=== PATIENT | female | born 1925 | race Caucasian/White ===

== ENCOUNTER 2016-08-20 10:54 | Observation (INO) ==
[~2016-08-20 10:54] MED LIST: *HR* Propofol 200 MG/20 ML VIAL IVP ONE; *HR* Succinylcholine 200 MG/10 ML VIAL IVP ONE; Lidocaine -MPF 2% 5 ML VIAL INFILT ONE; Lidocaine -MPF 4% 5 ML AMPUL TP ONE; Ondansetron 4 MG/2 ML VIAL IVP ONE
[2016-08-20] MEDS: Ringers Solution, Lactated 1,000 ML IVC SCH ×2 (11:36→23:45)
--- NOTE | 2016-08-20 11:36 | Anesthesia Evaluation PreOp ---
Date of Encounter: 08/20/16 Time of Encounter: 11:34 - Past History Planned Operation: EBUS Cardiac History: Hyperlipidemia (maintained on Atorvastatin) Pulmonary History: Former smoker (1-2ppd x many years. Quit >10yrs ago), COPD, Other (Lung Nodule/adenopathy associated w/ SOB. Home O2 prn.) QUALITY LIAISON History: TIA, Other (Anxiety/Depression maintained on Xanax.) Other Medical History: Renal (CRI), GERD (Hiatal Hernia/GERD maintained on Prilosec), Other (Dysphagia. Pt reports Hx of a "bleeding Hiatal Hernia that is inoperable because it is 'too close to my heart'" - Pt denies the possibility of it being an aneurysm...) Anesthesia History: No Prior Anesthetic Complications, Past Anesthesia (Appy, Shelia, Partial Hyster, R-CTR/ulnar nerve decompression, Hemorrhoidectomy, Kidney stones, Esophageal Dilations) Alcohol Use: none Drug use: none Medications and Allergies Alprazolam [Xanax 1 MG Tablet] 1 mg PO TID PRN 08/01/15 [History] Ferrous Sulfate [Iron] 325 mg PO BID 08/01/15 [History] Meclizine [Antivert] 25 mg PO BID 08/01/15 [History] Omeprazole [PriLOSEC] 20 mg PO DAILY 08/01/15 [History] OxyCODONE/APAP 10/325 [Percocet 10/325 MG] 1 tab PO Q6HR PRN 08/01/15 [History] Albuterol Neb [Proventil Neb] 2.5 mg IH TID 08/20/16 [History] Atorvastatin [Lipitor] 10 mg PO HS 08/20/16 [History] Cyanocobalamin (B-12) [Vitamin B12] 1 ml IJ QMONTH 08/20/16 [History] Ergocalciferol (VITAMIN D2) [Vitamin D2] 50,000 unit PO MO 08/20/16 [History] Furosemide [Lasix] 20 mg PO DAILY PRN 08/20/16 [History] Linaclotide [Linzess] 290 mcg PO DAILY PRN 08/20/16 [History] Tizanidine HCl 4 mg PO Q12H PRN 08/20/16 [History] Allergies No Known Drug Allergies Allergy (Verified 08/20/16 11:25) See Comments - Meds/Allergy Pre-op Review Medications Reviewed: Yes Allergies Reviewed: Yes Beta Blockers on Current Med List: No Anesthesia Results - Labs Laboratory Tests 08/09/16 08/16/16 14:35 10:08 WBC 8.6 Hgb 10.9 L Hct 34.3 L Plt Count 258 Sodium 140 Potassium 4.1 Chloride 111 H Carbon Dioxide 21 BUN 17 Creatinine 1.01 Est GFR (Non-Af Amer) 52 L Anesthesia Exam O2 Sat Height 1.52 m Height 1.52 m Weight 50.802 kg Weight 50.802 kg O2 Sat by Pulse Oximetry 98 O2 Sat by Pulse Oximetry 98 Vital Signs Temp Pulse Resp BP Pulse Ox 98.2 F 95 20 150/107 98 08/20/16 11:04 08/20/16 11:04 08/20/16 11:04 08/20/16 11:04 08/20/16 11:04 Height: 5'3" Weight: 113# bmi = 20 NPO (# of Hours): mnoC - HEENT Pupil (Motor): Pupils equal, EOMI Mallampati: II Teeth: Edentulous Oral Opening: Greater than 3 - QUALITY LIAISON LOC: Oriented QUALITY LIAISON Motor: Normal RUE, Normal LUE, Normal RLE, Normal LLE, Normal Face QUALITY LIAISON Sensory: Normal: RUE, LUE, RLE, LLE, Face - Cardiac Rhythm: Regular Murmur: None JVD: No - Pulmonary Breath Sounds: bilateral Clear (Clear in between productive sounding coughs) Respiratory Effort: Symmetrical Anesthesia Assess/Plan ASA Score: 3 Modified Parchman Scale for Level of Consciousness: Cooperative, oriented, and tranquil Anesthetic Plan: General Monitoring Plan: Standard Monitors Recovery Plan: PACU Anes Supervising Prov Stmt: Pt seen/evaluated, R&B Discussed, questions answered and consent obtained. Khang Kay MD
[2016-08-20] MEDS ORDERED: *HR* FentaNYL (PF) 100 MCG/2 ML VIAL ONE (12:12)
--- NOTE | 2016-08-20 12:19 | History & Physical Report ---
Date of Encounter: 08/20/16 Time of Encounter: 12:19 24 Hour HP Update - Instructions Instructions: If the History and Physical is less than 30 days old and was completed prior to A.M. admission and or procedure and has NOT been updated on calendar day of procedure please complete this update prior to performing procedure. - Update Patient reports changes in Medical Condition: No Changes in assessment/condition: No Changes in Medication: No Preop tests/diagnostics Reviewed: Yes Pre-Op MRSA Screen: Negative Surgery Remains Indicated: Yes Consent for Planned Operative Procedure(s) Verified: Yes - Pre-Operative Checklist Preoperative Checklist Indicated: No
[2016-08-20] MEDS ORDERED: *HR* EPINEPHrine 1 MG/10 ML SYRINGE ONE (14:40)
--- NOTE | 2016-08-20 15:27 | Event Note ---
Date of Encounter: 08/20/16 Time of Encounter: 15:18 I followed up with the patient post procedure in the recovery suite. She had bronchoscopy with endobronchial ultrasound and fine-needle aspiration which complicated by significant bleeding into the airway bleeding resolved on its own and patient was successfully extubated. Doing okay in recovery although oxygen saturation's on room air high 80s low 90s still with significant wheezing and increased respiratory rate given advanced age and procedure related complication recommend overnight observation in a monitored setting patient will be transported to the emergency department and I did call report to the emergency department physician. He would benefit from continued bronchodilator therapy and would recommend starting him. Antimicrobials for community-acquired pneumonia given findings from bronchoscopy consistent with left lower lobe pneumonia -bronchoalveolar lavage was performed which is pending at this time. I discussed my plan with the patient and her daughter at bedside and they are in agreement with overnight monitoring
--- NOTE | 2016-08-20 15:39 | Anesthesia Evaluation Post Op ---
Date of Encounter: 08/20/16 Time of Encounter: 15:37 - Vital Signs Vital Signs: Vital Signs/O2 Sat/Glucose, Most Current Temp Pulse Resp BP Pulse Ox 08/20/16 14:25 97.8 F 95 18 157/76 95 08/20/16 14:15 97.8 F 98 18 152/70 100 08/20/16 14:05 95 18 153/71 100 08/20/16 13:55 98.6 F 104 20 148/77 98 - Lungs Lungs: Clear Ascult./Percussion - Airway Airway: Non-obstructed - Cardiovascular Regular Rate, Baseline Rhythm - Mental Status Mental Status: Alert & Oriented, Answers Appropriately - Pain Pain Scale: 1 Pain Scale used: Numeric (1 - 10) - Nausea Vomiting Nausea Vomiting: Not Present - Hydration Hydration: Tolerates oral liquids, Able to void, Unable to void - Discharge PostOp Status: Transfer Patient to floor Anes Supervising Prov Stmt: Pt seen/evaluated, VSS and pt has met criteria for discharge. Pt to be admitted for overnight observation per Dr. Ortega's request. - MD Rahul
[2016-08-20] MEDS ORDERED: Naloxone 0.4 MG/ML INJ IVP PRN (18:55)
[2016-08-20] MEDS ORDERED: Acetaminophen 325 MG TABLET PO PRN (18:55)
[2016-08-20] MEDS ORDERED: *HR* OxyCODONE/APAP 10/325 TABLET PO PRN (19:01)
[2016-08-20] MEDS ORDERED: CefTRIAXone 1,000 MG VIAL IM ONE (19:33)
--- NOTE | 2016-08-20 19:37 | Internal Med History&Physical ---
Date of Encounter: 08/20/16 Time of Encounter: 18:30 Assessment and Plan (1) Hemoptysis Current visit: Yes Status: Acute 1 patient status post bronchoscopy today developed wheezing and hemoptysis postoperatively. Hemoptysis changed from bright red to dark small amounts. Zacarias patient coughed up dark red quarter size phlegm. We will continue to monitor 2 we will give Mucinex to help with mucus 3 we will check CBC in a.m. 4 pulmonary consult for [id number] bronchoscopy (2) Community acquired pneumonia Current visit: Yes Status: Acute 1 patient underwent bronchoscopy today-per pulmonary bronched consistent with left lower lobe pneumonia suggests antimicrobial coverage for the acquired pneumonia. Will initiate on Rocephin and Zithromax 2 continue with oxygen maintaining a SPO2 greater than 90% 3 steroids to taper (3) COPD exacerbation Current visit: Yes Status: Acute 1 patient has history of COPD is oxygen dependent. Underwent bronchoscopy today developed wheezing after extubation as well as hemoptysis. We will continue with oxygen titrated to maintain SPO2 greater than 92% 2 continue with bronchodilators 3 steroids to taper 4 Mucinex to help with mucus 5 continuous SPO2 monitoring Internal Medicine - H&P: HPI Chief complaint: hemoptysis Admitted From: Intrahospital Transfer Plans for Post Hospital Care: Home History of present illness: Ms. Jimenes is a 89 year old female with medical history of COPD oxygen- dependent anemia diverticulosis coronary artery disease. Patient has been seen by Dr. Bush concerning lung nodules increasing shortness of breath as well as weight 30 pound weight loss in the year. She underwent bronchoscopy today for lung biopsy. Postoperatively patient did experience wheezing after intubation as well as some hemoptysis. She was given breathing treatments wheezing did improve she has been admitted for observation overnight. Presently the patient does not appear to be in any respiratory distress she does have some scattered rhonchi throughout. She is hemodynamically stable this time I reviewed this case with Dr. Davenport who agrees with plan Past Med Surg Social Fam HX - Past Medical History Medical history: arthritis, COPD, coronary artery disease, other Psychiatric history: anxiety - Past Surgical History Surgical History: non-contributory, appendectomy, cholecystectomy, hysterectomy - Social History Smoking Status: Never smoker Smokeless Tobacco Status: No Alcohol use: none Drug use: none - Family History Son Living Status: Still Living Hx Family Cardiac Disorders: Yes (HTN) Internal Medicine - H&P: Meds Alprazolam [Xanax 1 MG Tablet] 1 mg PO TID PRN 08/01/15 [History] Ferrous Sulfate [Iron] 325 mg PO BID 08/01/15 [History] Meclizine [Antivert] 25 mg PO BID 08/01/15 [History] Omeprazole [PriLOSEC] 20 mg PO DAILY 08/01/15 [History] OxyCODONE/APAP 10/325 [Percocet 10/325 MG] 1 tab PO Q6HR PRN 08/01/15 [History] Albuterol Neb [Proventil Neb] 2.5 mg IH TID 08/20/16 [History] Atorvastatin [Lipitor] 10 mg PO HS 08/20/16 [History] Cyanocobalamin (B-12) [Vitamin B12] 1 ml IJ QMONTH 08/20/16 [History] Ergocalciferol (VITAMIN D2) [Vitamin D2] 50,000 unit PO MO 08/20/16 [History] Furosemide [Lasix] 20 mg PO DAILY PRN 08/20/16 [History] Linaclotide [Linzess] 290 mcg PO DAILY PRN 08/20/16 [History] Tizanidine HCl 4 mg PO Q12H PRN 08/20/16 [History] Allergies No Known Drug Allergies Allergy (Verified 08/20/16 11:25) See Comments All Systems PM: A 10-system review of systems was performed and is negative for pertinent findings except as documented above in the HPI. - Constitutional Constitutional: weight loss - Cardiovascular Cardiovascular ROS IM: no chest pain, no diaphoresis, no dyspnea, no lightheadedness, no palpitations, no syncope - Respiratory Respiratory: dyspnea on exertion - Gastrointestinal Gastrointestinal: constipation, no abdominal pain, no diarrhea, no hematemesis, no hematochezia, no melena, no nausea, no vomiting - Genitourinary Genitourinary: no change in urinary stream, no dysuria, no flank pain, no hematuria - Neurological Neurological ROS: no confusion, no convulsions, no focal weakness, no numbness, no tingling, no tremor(s) - Constitutional Vitals: Temp Pulse Resp BP Pulse Ox 98.2 F 100 18 174/89 95 08/20/16 19:13 08/20/16 19:13 08/20/16 19:13 08/20/16 19:13 08/20/16 19:13 General appearance: Present: A&O X 3 - Head Head exam: Present: atraumatic, normocephalic - Eye Eye exam: Present: PERRL, conjuntiva pink, sclera anicteric Pupils: Present: PERRL - Neck Neck exam general surgery: Present: supple, trachea midline. Absent: lymphadenopathy - Respiratory Respiratory exam: Present: rhonchi. Absent: accessory muscle use, rales, wheezes - Cardiovascular Cardiovascular exam: Present: RRR, +S1, +S2, systolic murmur. Absent: diastolic murmur, gallop, rubs - GI/Abdominal GI/Abdominal exam: Present: normal bowel sounds, soft, no peritoneal signs. Absent: distended, tenderness
[2016-08-20] MEDS ORDERED: Azithromycin 500 MG in D5% in Water 250 ML IVPB SCH (20:00)
[2016-08-20 20:11] LABS: Hemoglobin 10.1 g/dL (11.5-15.4)
[2016-08-20] MEDS: Ipratropium/Albuterol Neb 3 ML IH SCH (22:58)
[2016-08-20] MEDS: methylPREDNISolone 125 MG/2 ML VIAL IVP SCH (23:45)
[2016-08-21] MEDS: Albuterol 2.5 MG/3 ML NEBULIZER IH SCH ×2 (04:16→11:28)
[2016-08-21] MEDS: Ipratropium/Albuterol Neb 3 ML IH SCH ×3 (04:56→16:17)
[2016-08-21 05:17] LABS: Basophils % 0.1 %; Hematocrit 31.7 % (35.3-44.9); Hemoglobin 9.2 g/dL (11.5-15.4); Immature Granulocytes % 0.5 % (0-4); Lymphocytes # 0.5 K/mcL (0.6-4.6); Lymphocytes % 4.7 %; Mean Corpuscular Hemoglobin 26.4 pg (28.0-33.3); Mean Corpuscular Volume 90.8 fL (83.0-100.0); Mean Platelet Volume 10.4 fL (9.4-12.4); Monocytes # 0.1 K/mcL (0.0-1.3); Monocytes % 0.8 %; Neutrophils # 9.3 K/mcL (1.6-8.9); Platelet Count 299 K/mcL (140-400); Red Blood Count 3.49 M/mcL (3.82-4.97); Red Cell Distribution Width 16.4 % (11.5-14.5); Segmented Neutrophils % 93.9 %
[2016-08-21 05:37] LABS: BUN/Creatinine Ratio 23 (6-26); Blood Urea Nitrogen 23 mg/dL (7-20); Calcium 9.1 mg/dL (8.6-10.8); Carbon Dioxide 19 mEq/L (19-29); Chloride 107 mEq/L (98-109); Glucose 138 mg/dL (70-99); Osmolality,Calculated 286 (280-300); Potassium 4.6 mEq/L (3.5-4.5); Sodium 135 mEq/L (136-145); eGFR For African Americans > 60 (> 60); eGFR For Non-African Americans 53 (> 60)
[2016-08-21] MEDS: methylPREDNISolone 125 MG/2 ML VIAL IVP SCH (09:38)
[2016-08-21 09:55] LABS: Appearance of Body Fluid Hazy (Clear); Volume of Body Fluid 16 mL
[2016-08-21 12:09] VITALS: BP 145/79
--- NOTE | 2016-08-21 14:45 | Discharge Summary ---
Date of Encounter: 08/21/16 Time of Encounter: 14:42 - Discharge Diagnosis (1) Chronic respiratory failure with hypoxia Priority: Secondary Status: Acute (2) Weakness generalized Priority: Secondary Status: Chronic (3) Hemoptysis Priority: Secondary Status: Acute (4) Community acquired pneumonia Priority: Primary Status: Acute - Discharge Medications Prescriptions: Azithromycin [Zithromax] 500 mg PO DAILY #5 tablet Ipratropium/Albuterol Neb [Duoneb] 3 ml IH TID #60 inhsol PredniSONE 40 mg PO DAILY #5 tablet Home Medications: Alprazolam [Xanax 1 MG Tablet] 1 mg PO TID PRN 08/01/15 [History] Ferrous Sulfate [Iron] 325 mg PO BID 08/01/15 [History] Meclizine [Antivert] 25 mg PO BID 08/01/15 [History] Omeprazole [PriLOSEC] 20 mg PO DAILY 08/01/15 [History] OxyCODONE/APAP 10/325 [Percocet 10/325 MG] 1 tab PO Q6HR PRN 08/01/15 [History] Albuterol Neb [Proventil Neb] 2.5 mg IH TID 08/20/16 [History] Atorvastatin [Lipitor] 10 mg PO HS 08/20/16 [History] Cyanocobalamin (B-12) [Vitamin B12] 1 ml IJ QMONTH 08/20/16 [History] Ergocalciferol (VITAMIN D2) [Vitamin D2] 50,000 unit PO MO 08/20/16 [History] Furosemide [Lasix] 20 mg PO DAILY PRN 08/20/16 [History] Linaclotide [Linzess] 290 mcg PO DAILY PRN 08/20/16 [History] Tizanidine HCl 4 mg PO Q12H PRN 08/20/16 [History] Albuterol Neb [Proventil Neb] 2.5 mg IH TIDR PRN inhsol 08/21/16 [Rx] Azithromycin [Zithromax] 500 mg PO DAILY #5 tablet 08/21/16 [Rx] Ipratropium/Albuterol Neb [Duoneb] 3 ml IH TID #60 inhsol 08/21/16 [Rx] PredniSONE 40 mg PO DAILY #5 tablet 08/21/16 [Rx] Allergies/Adverse Reactions: Allergies No Known Drug Allergies Allergy (Verified 08/20/16 11:25) See Comments Date of admission: 08/20/16 18:39 Primary care physician: Karime Conley Consults: 08/20/16 19:19 Consult to Pulmonology [CONS] Routine Consulting Provider: [facility] [place] Reason for Consult: S/P bronch, hemoptysis Time Notified: 19:21 Call Completed: No - Patient Status Disposition: Home Health Service Condition: Good Functional capacity at discharge: uses cane/walker - Discharge Instructions Instructions: Prednisone (By mouth), Azithromycin (By mouth), Ipratropium/ Albuterol (By breathing), Chronic Obstructive Pulmonary Disease (DC), Anemia ( GEN), Pneumonia (DC) Follow Up With: Dilshad Ortega MD [Partnered Physician] - (the office will call you with your appointment time ) Karime Koch MD [Primary Care Provider] - 08/29/16 2:00 pm ( ) - Diet and Activity Activity: ambulate only with your walker, as per physical therapy Diet: advance to your usual diet, low salt diet Hospital course: Ms. Jimenes is a 89 year old female with medical history of COPD oxygen- dependent anemia diverticulosis coronary artery disease. Patient has been seen by Dr. Bush concerning lung nodules increasing shortness of breath as well as weight 30 pound weight loss in the year. She underwent bronchoscopy yesterday for lung biopsy. Postoperatively patient did experience wheezing after intubation as well as some hemoptysis. She was given breathing treatments wheezing did improve she has been admitted for observation overnight. Imaging revealed findings concerning for pneumonia. She was treated with ceftriaxone and azithromycin, prednisone and oxygen by nasal cannula. She improved. Currently she has back to baseline. Denies shortness of breath. Hemoptysis has resolved. She was reevaluated by pulmonary and cleared for discharge. She will be discharged home on azithromycin and prednisone. - Time Spent with Patient Total time spent providing and/or coordinating discharge services: - Constitutional Vitals: Temp Pulse Resp BP Pulse Ox 98.1 F 118 16 145/79 98 08/21/16 12:03 08/21/16 12:03 08/21/16 12:03 08/21/16 12:03 08/21/16 12:03 General appearance: Present: A&O X 3 - Respiratory Respiratory exam: Present: CTAB. Absent: accessory muscle use, rales, rhonchi, wheezes - Cardiovascular Cardiovascular exam: Present: RRR, +S1, +S2. Absent: diastolic murmur, gallop, rubs, systolic murmur - Extremities Exam Extremities exam: Present: warm, radial pulses palpable and symetrical. Absent : calf tenderness, cyanotic, pedal edema
--- NOTE | 2016-08-29 10:09 | Internal Med Progress Note ---
Date of Encounter: 08/21/16 - Assessment and plan (1) Chronic respiratory failure with hypoxia Status: Acute (2) Weakness generalized Status: Chronic (3) Hemoptysis Status: Acute (4) Community acquired pneumonia Status: Acute - Constitutional Vitals: Temp Pulse Resp BP Pulse Ox 98.1 F 118 20 145/79 98 08/21/16 12:03 08/21/16 12:03 08/21/16 16:17 08/21/16 12:03 08/21/16 16:17 General appearance: Present: A&O X 3 Internal Medicine: Result - Labs CBC & Chem 7: 08/21/16 04:54 08/21/16 04:54 Consult Discharge Plan - Plan Instructions: Prednisone (By mouth), Azithromycin (By mouth), Ipratropium/ Albuterol (By breathing), Chronic Obstructive Pulmonary Disease (DC), Anemia ( GEN), Pneumonia (DC) Referrals: Dilshad Ortega MD [Partnered Physician] - (the office will call you with your appointment time ) Karime Koch MD [Primary Care Provider] - 08/29/16 2:00 pm ( ) Prescriptions: Azithromycin [Zithromax] 500 mg PO DAILY #5 tablet Ipratropium/Albuterol Neb [Duoneb] 3 ml IH TID #60 inhsol PredniSONE 40 mg PO DAILY #5 tablet
== END 2016-08-21 17:15 | disposition home health service (06) ==
LOC: ENDPAV 10:54 → INTOOBSV 18:39 → 2NENU 18:39
PROVIDERS: ADMIT Internal Medicine; ATTEND Internal Medicine

== ENCOUNTER 2016-09-04 12:57 | Observation (INO) ==
[2016-09-04 13:43] LABS: Basophils % 0.1 %; Eosinophils % 0.1 %; Hematocrit 37.5 % (35.3-44.9); Immature Granulocytes % 1.1 % (0-4); Lymphocytes # 1.4 K/mcL (0.6-4.6); Mean Corpuscular Hemoglobin 26.9 pg (28.0-33.3); Mean Platelet Volume 9.8 fL (9.4-12.4); Monocytes % 6.2 %; Neutrophils # 13.3 K/mcL (1.6-8.9); Platelet Count 331 K/mcL (140-400); Red Blood Count 4.46 M/mcL (3.82-4.97); Red Cell Distribution Width 17.5 % (11.5-14.5); Segmented Neutrophils % 83.5 %
[2016-09-04 13:48] LABS: Mean Corpuscular Volume 84.1 fL (83.0-100.0)
[2016-09-04 13:56] LABS: Calcium 9.4 mg/dL (8.6-10.8); Potassium 4.4 mEq/L (3.5-4.5)
[2016-09-04] MEDS ORDERED: Ipratropium/Albuterol Neb 3 ML IH ONE (13:57)
[2016-09-04] MEDS ORDERED: Aspirin 81 MG TAB.CHEW PO STA (13:57)
[2016-09-04] MEDS ORDERED: methylPREDNISolone 125 MG/2 ML VIAL IVP ONE (13:57)
--- NOTE | 2016-09-04 14:00 | Emergency Department Note ---
Disposition Clinical Impression: Exertional dyspnea, Chest pain Disposition: Admitted As Inpatient Condition: Fair Referrals: Karime Koch MD [Primary Care Provider] - Forms: ED Satisfaction Letter Time of Disposition: 15:34 General Adult HPI - General Chief complaint: ED Weakness Stated complaint: weakness, amanda Time Seen by Provider: 09/04/16 13:54 Source: patient, family Mode of arrival: wheelchair Limitations: no limitations Nursing Notes Reviewed: Yes Vital Signs Reviewed: Yes - History of Present Illness HPI Narrative: 89-year-old has had increasing chest pain and shortness of breath for last couple of days. States she really get short of breath when she exerts herself. Does have a history of COPD but has not smoked for 20 years. No recent cardiac workup. Pt Subjective Complaint: Chest pain shortness of breath Onset (ago): day(s) Location: chest Radiation: non-radiation Pain Severity: moderate Pain Scale: 0 Quality: aching Consistency: constant Improves with: nothing Worsens with: other (Exertion) Associated symptoms: Reports: chest pain Treatments Prior to Arrival: none - Related Data Home Medications Medication Instructions Recorded Confirmed Alprazolam [Xanax 1 MG Tablet] 1 mg PO TID PRN 08/01/15 08/20/16 Ferrous Sulfate [Iron] 325 mg PO BID 08/01/15 08/20/16 Meclizine [Antivert] 25 mg PO BID 08/01/15 08/20/16 Omeprazole [PriLOSEC] 20 mg PO DAILY 08/01/15 08/20/16 OxyCODONE/APAP 10/325 [Percocet 1 tab PO Q6HR PRN 08/01/15 08/20/16 10/325 MG] Albuterol Neb [Proventil Neb] 2.5 mg IH TID 08/20/16 08/20/16 Atorvastatin [Lipitor] 10 mg PO HS 08/20/16 08/20/16 Cyanocobalamin (B-12) [Vitamin B12] 1 ml IJ QMONTH 08/20/16 08/20/16 Ergocalciferol (VITAMIN D2) 50,000 unit PO MO 08/20/16 08/20/16 [Vitamin D2] Furosemide [Lasix] 20 mg PO DAILY PRN 08/20/16 08/20/16 Linaclotide [Linzess] 290 mcg PO DAILY PRN 08/20/16 08/20/16 Tizanidine HCl 4 mg PO Q12H PRN 08/20/16 08/20/16 Previous Rx's Medication Instructions Recorded Albuterol Neb [Proventil Neb] 2.5 mg IH TIDR PRN inhsol 08/21/16 Azithromycin [Zithromax] 500 mg PO DAILY #5 tablet 08/21/16 Ipratropium/Albuterol Neb [Duoneb] 3 ml IH TID #60 inhsol 08/21/16 PredniSONE 40 mg PO DAILY #5 tablet 08/21/16 Allergies Allergy/AdvReac Type Severity Reaction Status Date / Time No Known Drug Allergies Allergy See Verified 08/20/16 11:25 Comments All systems ED: reviewed and negative except as stated. Constitutional: Denies: fever, chills, weakness, weight change Eyes: Denies: eye pain, eye discharge, vision change ENT ED: Denies: ear pain, throat pain, dental pain, hearing loss, epistaxis, congestion, dysphagia Cardiovascular: Reports: chest pain, dyspnea on exertion. Denies: palpitations , edema, syncope Respiratory: Reports: dyspnea, wheezes. Denies: cough, hemoptysis, stridor Gastrointestinal: Denies: abdominal pain, nausea, vomiting, diarrhea, constipation, hematemesis, melena, hematochezia Genitourinary: Denies: dysuria, frequency, hematuria, discharge Musculoskeletal: Denies: back pain, neck pain, arthralgia, myalgia Integumentary: Denies: rash, abrasion, lesions Neurological: Denies: headache, weakness, numbness, paresthesias, confusion, abnormal gait, vertigo Psychiatric: Denies: anxiety, depression, suicidal thoughts, homicidal thoughts , auditory hallucinations, visual hallucinations Endocrine: Denies: fatigue Hematological/Lymphatic: Denies: easy bleeding, easy bruising Allergic/Immunologic: Denies: facial swelling, urticaria Past Medical History - Past Medical History Medical history: Reports: arthritis, COPD, coronary artery disease, other Surgical history: Reports: non-contributory, appendectomy, cholecystectomy, hysterectomy Psychiatric history: Reports: anxiety - Social History Smoking Status: Never smoker Smokeless Tobacco Status: No Alcohol use: Reports: none Drug use: Reports: none Physical Exam - General Limitations: no limitations General appearance: alert, in no apparent distress - Head Head exam: atraumatic, normocephalic, normal inspection - Eye Eye exam: Present: normal appearance, PERRL, EOMI - ENT ENT exam: normal exam, normal oropharynx, mucous membranes moist - Neck Neck exam: Present: normal inspection, full ROM, trachea midline - Chest Chest inspection: Present: normal inspection, symmetric chest wall rise - Respiratory Respiratory exam: Present: wheezes - Cardiovascular Cardiovascular exam: Present: regular rate, normal rhythm, normal heart sounds - Abdominal Exam Abdominal exam: Present: soft, Non-Tender. Absent: tenderness, distention, guarding, rebound, rigidity - Extremities Exam Extremities exam: Present: normal inspection, full ROM. Absent: tenderness, pedal edema - Expanded Lower Extremity Exam Neurovascular/Tendon exam: Absent: motor deficit, sensory deficit, tendon deficit Gait: not tested/not observed - Back Exam Back exam: Present: normal inspection, full ROM. Absent: tenderness - Neurological Exam Neurological exam: Present: alert, oriented X3 - Psychiatric Psychiatric exam: Present: normal affect, normal mood - Skin Skin exam: Present: warm, dry, intact, normal color Course - Reevaluation(s) Reevaluation #1: 89-year-old female who comes in with intermittent chest pain for the last couple of days and exertional dyspnea. EKG shows no acute findings. Initial troponin is negative her BNP is 113 chest x-ray is clear. Concern is for cardiac etiology discomfort. She's had no recent cardiac workup. Time: 15:03 - Consultations Consultation #1: Discussed with , admit. Time: 15:33 Vital Signs Temperature 98.5 F 09/04/16 13:02 Pulse Rate 87 09/04/16 13:02 Respiratory Rate 18 09/04/16 13:02 Blood Pressure 138/85 09/04/16 13:02 O2 Sat by Pulse Oximetry 97 09/04/16 13:02 Temperature 98.5 F 09/04/16 13:02 Pulse Rate 79 09/04/16 15:06 Respiratory Rate 18 09/04/16 15:06 Blood Pressure 149/65 09/04/16 15:06 O2 Sat by Pulse Oximetry 98 09/04/16 15:06 Oxygen Delivery Oxygen Delivery Room Air Medical Decision Making - Lab Data Lab results reviewed: Yes I reviewed the patient's lab results. Result diagrams: 09/04/16 13:32 09/04/16 13:32 Lab Results 09/04/16 09/04/16 09/04/16 Range/Units 13:32 13:32 13:32 WBC 15.9 H (4.3-11.1) K/mcL RBC 4.46 (3.82-4.97) M/mcL Hgb 12.0 (11.5-15.4) g/dL Hct 37.5 (35.3-44.9) % MCV 84.1 D (83.0-100.0) fL MCH 26.9 L (28.0-33.3) pg MCHC 32.0 (31.6-35.5) g/dL RDW 17.5 H (11.5-14.5) % Plt Count 331 (140-400) K/mcL MPV 9.8 (9.4-12.4) fL Immature Gran % 1.1 (0-4) % Seg Neutrophils % 83.5 % Lymphocytes % 9.0 % Monocytes % 6.2 % Eosinophils % 0.1 % Basophils % 0.1 % Neutrophils # 13.3 H (1.6-8.9) K/mcL Lymphocytes # 1.4 (0.6-4.6) K/mcL Monocytes # 1.0 (0.0-1.3) K/mcL Eosinophils # 0.0 (0.0-0.6) K/mcL Basophils # 0.0 (0.0-0.2) K/mcL Sodium 137 (136-145) mEq/L Potassium 4.4 (3.5-4.5) mEq/L Chloride 107 (98-109) mEq/L Carbon Dioxide 23 (19-29) mEq/L BUN 38 H (7-20) mg/dL Creatinine 1.07 (0.57-1.11) mg/dL Est GFR ( Amer) 59 L (> 60) Est GFR (Non-Af Amer) 48 L (> 60) BUN/Creatinine Ratio 36 H (6-26) Glucose 84 (70-99) mg/dL Calculated Osmolality 292 (280-300) Calcium 9.4 (8.6-10.8) mg/dL Troponin I 0.03 (0-0.03) ng/mL B-Natriuretic Peptide (0-100) pg/mL 09/04/16 Range/Units 13:32 WBC (4.3-11.1) K/mcL RBC (3.82-4.97) M/mcL Hgb (11.5-15.4) g/dL Hct (35.3-44.9) % MCV (83.0-100.0) fL MCH (28.0-33.3) pg MCHC (31.6-35.5) g/dL RDW (11.5-14.5) % Plt Count (140-400) K/mcL MPV (9.4-12.4) fL Immature Gran % (0-4) % Seg Neutrophils % % Lymphocytes % % Monocytes % % Eosinophils % % Basophils % % Neutrophils # (1.6-8.9) K/mcL Lymphocytes # (0.6-4.6) K/mcL Monocytes # (0.0-1.3) K/mcL Eosinophils # (0.0-0.6) K/mcL Basophils # (0.0-0.2) K/mcL Sodium (136-145) mEq/L Potassium (3.5-4.5) mEq/L Chloride (98-109) mEq/L Carbon Dioxide (19-29) mEq/L BUN (7-20) mg/dL Creatinine (0.57-1.11) mg/dL Est GFR ( Amer) (> 60) Est GFR (Non-Af Amer) (> 60) BUN/Creatinine Ratio (6-26) Glucose (70-99) mg/dL Calculated Osmolality (280-300) Calcium (8.6-10.8) mg/dL Troponin I (0-0.03) ng/mL B-Natriuretic Peptide 113 H (0-100) pg/mL - Radiology Data Radiology results reviewed: Yes I reviewed the patient's radiology results. Chest X-Ray 09/04/16 13:16 IMPRESSION: No acute process. D/ / 09/04/2016 14:18:33 Jay Byrd MD / bcarter Interpreting Provider: Jay Byrd MD - EKG Data EKG #1 EKG shows normal: sinus rhythm Rate: normal Rhythm: NSR [place]/QRS: IVCD Interpretation: no acute changes
[2016-09-04] MEDS ORDERED: Naloxone 0.4 MG/ML INJ IVP PRN (17:35)
[2016-09-04] MEDS ORDERED: Furosemide 20 MG TABLET PO PRN (17:37)
[2016-09-04] MEDS ORDERED: Albuterol 2.5 MG/3 ML NEBULIZER IH PRN (17:37)
[2016-09-04] MEDS ORDERED: *HR* OxyCODONE/APAP 10/325 TABLET PO PRN (17:37)
--- NOTE | 2016-09-04 18:55 | Internal Med History&Physical ---
<Paty Swain - Last Filed: 09/04/16 20:02> Date of Encounter: 09/04/16 Time of Encounter: 18:45 Assessment and Plan (1) Chest pain Current visit: Yes Status: Acute Patient with mid-sternal ache for the last 2 weeks. Patient reports it is sore when palpated. She also reports exertional dyspnea. Initial troponin negative at 0.03. EKG shows normal sinus rhythm. Unlikely this is cardiac, but will rule out ACS. Continuous oncology consultant serial troponins echocardiogram and stress test in the morning. Qualifiers: Chest pain type: other chest pain Qualified Code(s): R07.89 - Other chest pain; R07.8 - Other chest pain (2) Dehydration Current visit: Yes Status: Acute Patient reports poor oral intake over the last few weeks, with decreased fluids over the last few days. BUN elevated at 38, suggestive of dehydration. Dry mucous membranes. IV fluids 0.9NS at 60mL/hr. Enourage PO intake. Recheck labs in the morning. (3) Weakness generalized Current visit: No Status: Chronic Patient reports generalized weakness, poor oral intake, poor appetite for the last 2 weeks. Weakness likely related to poor oral intake. Will hydrate and continue to monitor. (4) COPD (chronic obstructive pulmonary disease) Current visit: No Status: Chronic Patient with history of COPD, admitted last month with pneumonia and had a bronch with biopsy on 08/21 which showed acute inflammatory cells, but no microbes, granulmatous cells or malignancy seen. duoneb treatments QID albuterol nebulizer Q2hr prn titrate Oxygen to maintain O2 saturations > 92% Qualifiers: COPD type: emphysema Emphysema type: unspecified Qualified Code(s): J43.9 - Emphysema, unspecified (5) Exertional dyspnea Current visit: Yes Status: Acute (6) Leukocytosis Current visit: Yes Status: Acute WBC count elevated to 15.9. Patient is afebrile. Patient reports poor appetite , weakness, occasional diarrhea and dysuria. CXR shows no acute process. UA with reflex culture ordered. Await culture results. Qualifiers: Leukocytosis type: unspecified Qualified Code(s): D72.829 - Elevated white blood cell count, unspecified (7) Diarrhea Current visit: Yes Status: Acute Patient reported diarrhea on and off for the last several weeks and multiple rounds of antibiotics for pneumonia. Patient reports last episode of diarrhea was 2 days ago. Will get stool sample for c.diff and culture. Contact precautions. Flagyl IVPB. Await results of c.diff and culture. Qualifiers: Diarrhea type: unspecified type Qualified Code(s): R19.7 - Diarrhea, unspecified (8) DVT prophylaxis Current visit: Yes Status: Acute ambulate with assistance anti-embolic stockings Lovenox 40mg SQ daily Internal Medicine - H&P: HPI Chief complaint: shortness of breath Admitted From: Emergency Dept Plans for Post Hospital Care: Home History of present illness: Ms. Jimenes is a 89 year old female with COPD, arthritis, GERD who presented to the emergency department today with complaints of weakness, poor appetite, shortness of breath on exertion and ache in her chest. She reports these symptoms have been bothering her for the last 2 weeks, but have been progressively worsening. She reports occasional lightheadedness, occasional cough productive of yellow phlegm, and pain and burning with urination. She reports she has not been able to drink much the last few days. She denies any nausea, vomiting, or abdominal pain. She reports occasional diarrhea, but none in the last 2 days. She reports chronic numbness and tingling in her right hand related to carpal tunnel. Evaluation in the ED revealed elevated WBC count of 15.9. Troponin was normal at 0.03. BNP was mildly elevated at 113. EKG showed normal sinus rhythm and her CXR showed no acute process. On exam, patient is alert and oriented, in no acute distress. Heart has regular rate and rhythm with loud systolic murmur and occasional skipped beat. Lungs are clear bilaterally to auscultation. Abdomen was soft, non-tender with positive bowel sounds. Past Med Surg Social Fam HX - Past Medical History Medical history: arthritis, COPD, coronary artery disease, other Psychiatric history: anxiety - Past Surgical History Surgical History: non-contributory, appendectomy, cholecystectomy, hysterectomy - Social History Smoking Status: Former smoker (50 Pack year history) Smokeless Tobacco Status: No Alcohol use: none Drug use: none - Family History Son Age: 62 Living Status: Still Living Hx Family Cardiac Disorders: Yes (HTN) Mother Living Status: Age at : 85 Cause of : pneumonia Father Living Status: Cause of : MA Hx Family Cardiac Disorders: Yes Internal Medicine - H&P: Meds Alprazolam [Xanax 1 MG Tablet] 1 mg PO TID PRN 08/01/15 [History] Ferrous Sulfate [Iron] 325 mg PO BID 08/01/15 [History] Omeprazole [PriLOSEC] 20 mg PO DAILY 08/01/15 [History] OxyCODONE/APAP 10/325 [Percocet 10/325 MG] 1 tab PO Q6HR PRN 08/01/15 [History] Atorvastatin [Lipitor] 10 mg PO HS 08/20/16 [History] Cyanocobalamin (B-12) [Vitamin B12] 1,000 mcg IM QMONTH 08/20/16 [History] Ergocalciferol (VITAMIN D2) [Vitamin D2] 50,000 unit PO MO 08/20/16 [History] Furosemide [Lasix] 20 mg PO DAILY PRN 08/20/16 [History] Linaclotide [Linzess] 290 mcg PO DAILY PRN 08/20/16 [History] Ipratropium/Albuterol Neb [Duoneb] 3 ml IH TID PRN 09/04/16 [History] Allergies No Known Drug Allergies Allergy (Verified 08/20/16 11:25) See Comments All Systems PM: A 10-system review of systems was performed and is negative for pertinent findings except as documented above in the HPI. - Constitutional Constitutional: anorexia, fatigue, weakness, no chills, no fever(s), no night sweats - EENT Eyes: no change in vision, no discharge, no pain, no photophobia Ears: no ear discharge, no ear pain, no tinnitus Nose, mouth and throat: no dysphagia, no nasal discharge, no neck pain, no sore throat - Cardiovascular Cardiovascular ROS IM: chest pain (ache), dyspnea on exertion, lightheadedness, no diaphoresis, no dyspnea, no palpitations, no syncope - Respiratory Respiratory: cough, dyspnea on exertion, excessive phlegm production, no dyspnea , no wheezing - Gastrointestinal Gastrointestinal: diarrhea, no abdominal pain, no hematemesis, no hematochezia, no melena, no nausea, no vomiting - Genitourinary Genitourinary: dysuria, no change in urinary stream, no flank pain, no hematuria - Musculoskeletal Musculoskeletal ROS IM: no numbness, no tingling - Integumentary Integumentary IM: no rash, no unusual bruising - Neurological Neurological ROS: tingling (right hand chronic), no confusion, no convulsions, no focal weakness, no numbness, no tremor(s) - Hematologic/Lymphatic Hematologic/Lymphatic: no easy bruising - Constitutional Vitals: Temp Pulse Resp BP Pulse Ox 97.9 F 78 15 141/67 98 09/04/16 17:22 09/04/16 17:22 09/04/16 17:22 09/04/16 17:22 09/04/16 17:22 General appearance: Present: A&O X 3, pleasant, no acute distress - Head Head exam: Present: atraumatic, normocephalic - Eye Eye exam: Present: PERRL, conjuntiva pink, sclera anicteric Pupils: Present: PERRL - Neck Neck exam general surgery: Present: supple, trachea midline. Absent: lymphadenopathy - Respiratory Respiratory exam: Present: CTAB. Absent: accessory muscle use, rales, rhonchi, wheezes - Cardiovascular Cardiovascular exam: Present: RRR, +S1, +S2, systolic murmur. Absent: diastolic murmur, gallop, rubs - Expanded Cardiovascular Exam Location: Present: LLSB Intensity: 4/6 - GI/Abdominal GI/Abdominal exam: Present: normal bowel sounds, soft, no peritoneal signs. Absent: distended, tenderness - Extremities Exam Extremities exam: Present: warm, radial pulses palpable and symetrical. Absent : calf tenderness, cyanotic, pedal edema - Neurological Exam Neurological exam: Present: CN II-XII intact, oriented X3, no focal deficits. Absent: facial droop, speech deficit - Skin Skin exam: Present: dry, intact Internal Med - H&P Results - Labs CBC & Chem 7: 09/04/16 13:32 09/04/16 13:32 Labs: All Lab Results (24 Hours) 09/04/16 09/04/16 09/04/16 Range/Units 13:32 13:32 13:32 WBC 15.9 H (4.3-11.1) K/mcL RBC 4.46 (3.82-4.97) M/mcL Hgb 12.0 (11.5-15.4) g/dL Hct 37.5 (35.3-44.9) % MCV 84.1 D (83.0-100.0) fL MCH 26.9 L (28.0-33.3) pg MCHC 32.0 (31.6-35.5) g/dL RDW 17.5 H (11.5-14.5) % Plt Count 331 (140-400) K/mcL MPV 9.8 (9.4-12.4) fL Immature Gran % 1.1 (0-4) % Seg Neutrophils % 83.5 % Lymphocytes % 9.0 % Monocytes % 6.2 % Eosinophils % 0.1 % Basophils % 0.1 % Neutrophils # 13.3 H (1.6-8.9) K/mcL Lymphocytes # 1.4 (0.6-4.6) K/mcL Monocytes # 1.0 (0.0-1.3) K/mcL Eosinophils # 0.0 (0.0-0.6) K/mcL Basophils # 0.0 (0.0-0.2) K/mcL Sodium 137 (136-145) mEq/L Potassium 4.4 (3.5-4.5) mEq/L Chloride 107 (98-109) mEq/L Carbon Dioxide 23 (19-29) mEq/L BUN 38 H (7-20) mg/dL Creatinine 1.07 (0.57-1.11) mg/dL Est GFR ( Amer) 59 L (> 60) Est GFR (Non-Af Amer) 48 L (> 60) BUN/Creatinine Ratio 36 H (6-26) Glucose 84 (70-99) mg/dL Calculated Osmolality 292 (280-300) Calcium 9.4 (8.6-10.8) mg/dL Troponin I 0.03 (0-0.03) ng/mL B-Natriuretic Peptide (0-100) pg/mL 09/04/16 Range/Units 13:32 WBC (4.3-11.1) K/mcL RBC (3.82-4.97) M/mcL Hgb (11.5-15.4) g/dL Hct (35.3-44.9) % MCV (83.0-100.0) fL MCH (28.0-33.3) pg MCHC (31.6-35.5) g/dL RDW (11.5-14.5) % Plt Count (140-400) K/mcL MPV (9.4-12.4) fL Immature Gran % (0-4) % Seg Neutrophils % % Lymphocytes % % Monocytes % % Eosinophils % % Basophils % % Neutrophils # (1.6-8.9) K/mcL Lymphocytes # (0.6-4.6) K/mcL Monocytes # (0.0-1.3) K/mcL Eosinophils # (0.0-0.6) K/mcL Basophils # (0.0-0.2) K/mcL Sodium (136-145) mEq/L Potassium (3.5-4.5) mEq/L Chloride (98-109) mEq/L Carbon Dioxide (19-29) mEq/L BUN (7-20) mg/dL Creatinine (0.57-1.11) mg/dL Est GFR ( Amer) (> 60) Est GFR (Non-Af Amer) (> 60) BUN/Creatinine Ratio (6-26) Glucose (70-99) mg/dL Calculated Osmolality (280-300) Calcium (8.6-10.8) mg/dL Troponin I (0-0.03) ng/mL B-Natriuretic Peptide 113 H (0-100) pg/mL - Diagnostic Studies Chest x-ray Additional comments: Chest X-Ray 09/04/16 13:16 IMPRESSION: No acute process. D/ / 09/04/2016 14:18:33 Jay Byrd MD / bcartana lilia Interpreting Provider: Jay Byrd MD <Gary Romero - Last Filed: 09/04/16 22:59> Date of Encounter: 09/04/16 - Constitutional Vitals: Temp Pulse Resp BP Pulse Ox 98.6 F 90 16 137/78 99 09/04/16 19:36 09/04/16 19:36 09/04/16 19:36 09/04/16 19:36 09/04/16 19:36 General appearance: Present: A&O X 3, pleasant, no acute distress - Respiratory Respiratory exam: Present: CTAB. Absent: chest wall tenderness - Cardiovascular Cardiovascular exam: Present: RRR, +S1, +S2 - GI/Abdominal GI/Abdominal exam: Present: soft. Absent: tenderness Internal Med - H&P Results - Labs CBC & Chem 7: 09/04/16 13:32 09/04/16 13:32 Labs: Cardiac Enzymes 09/04/16 Range/Units 19:07 Troponin I 0.02 (0-0.03) ng/mL Urine 09/04/16 Range/Units 18:55 Urine Color Yellow (Yellow) Urine Clarity Clear (Clear) Urine pH 6.0 (5.0-8.0) pH Units Ur Specific [place] 1.023 (1.010-1.025) Urine Protein 30 H (Neg-Trace) mg/dL Urine Glucose (UA) Normal (Normal) mg/dL - Diagnostic Studies Chest x-ray Status: image reviewed by me Additional comments: lungs clear - Attending Attestation I discussed the patient [place], PMH, ROS, lab data, and exam findings with Paty Swain CNP. I then saw and examined patient independently. Patient and daughter reiterate the same history provided to me by Paty. On exam, she has no chest pain presently and she is not short of breath at this time. Lungs are clear and she has no reproducible chest pain on my assessment. Abdomen is soft and benign. She has been on multiple rounds of antibiotics lately, and I am concerned about C. Diff Colitis. She has also been on multiple rounds of steroids lately as well. This leads me to consider adrenal insufficiency as etiology for nausea/vomiting/diarrhea/weakness. As such, I'll order ACTH stimulation test. Additionally, I will change her Flagyl to PO route rather than IV. Other than my comments above and noted exam findings, I agree with Paty's assessment and plan.
[2016-09-04 19:11] LABS: Bilirubin,Urine Negative (Negative); Blood,Urine Moderate (Negative); Clarity,Urine Clear (Clear); Color,Urine Yellow (Yellow); Glucose,Urine (UA) Normal (Normal); Ketones,Urine Negative (Negative); Leukocyte Esterase,Urine Small (Negative); Nitrite,Urine Negative (Negative); Protein,Urine 30 mg/dL (Neg-Trace); Specific Gravity,Urine 1.023 (1.010-1.025); Urobilinogen,Urine Normal (Normal)
[2016-09-04 19:14] LABS: Bacteria,Urine None Seen per hpf (None-Few); Hyaline Casts,Urine None Seen per lpf (None-Few); RBC,Urine 15-30 per hpf (0-3); Squamous Epithelial Cell,Urine Moderate per lpf (None-Few)
[2016-09-04] MEDS: Ipratropium/Albuterol Neb 3 ML IH SCH ×2 (19:31→22:28)
[2016-09-04] MEDS: 0.9 % Sodium Chloride 1,000 ML IVC SCH (20:27)
[2016-09-04] MEDS: ALPRAZolam 1 MG TABLET PO PRN (20:34)
[2016-09-04] MEDS: Budesonide/Formoterol 160/4.5 MDI IH SCH (22:28)
[2016-09-04] MEDS: metroNIDAZOLE 500 MG TABLET PO SCH (23:23)
[2016-09-05] MEDS ORDERED: MetroNIDAZOLE 500 MG/100 ML 500 MG/100 ML BAG IVPB SCH
[2016-09-05 01:57] LABS: Hematocrit 30.5 % (35.3-44.9); Immature Granulocytes % 1.3 % (0-4); Lymphocytes # 0.2 K/mcL (0.6-4.6); Lymphocytes % 2.8 %; Mean Corpuscular HGB Conc 32.1 g/dL (31.6-35.5); Mean Platelet Volume 10.5 fL (9.4-12.4); Monocytes # 0.1 K/mcL (0.0-1.3); Neutrophils # 6.7 K/mcL (1.6-8.9); Platelet Count 260 K/mcL (140-400); Red Blood Count 3.63 M/mcL (3.82-4.97); Red Cell Distribution Width 17.3 % (11.5-14.5); Segmented Neutrophils % 93.9 %
[2016-09-05 01:58] LABS: Hemoglobin 9.8 g/dL (11.5-15.4)
[2016-09-05 02:12] LABS: BUN/Creatinine Ratio 41 (6-26); Blood Urea Nitrogen 39 mg/dL (7-20); Calcium 8.6 mg/dL (8.6-10.8); Carbon Dioxide 19 mEq/L (19-29); Chloride 109 mEq/L (98-109); Glucose 188 mg/dL (70-99); Osmolality,Calculated 298 (280-300); Potassium 4.7 mEq/L (3.5-4.5); Sodium 137 mEq/L (136-145); eGFR For African Americans > 60 (> 60); eGFR For Non-African Americans 55 (> 60)
[2016-09-05] MEDS: Ipratropium/Albuterol Neb 3 ML IH SCH ×4 (04:16→22:02)
[2016-09-05] MEDS: *HR* Enoxaparin 30 MG/0.3 ML SYRINGE SQ SCH (06:17)
[2016-09-05] MEDS ORDERED: Regadenoson 0.4 MG/5 ML SYRINGE IVP ONE (06:19)
[2016-09-05] MEDS ORDERED: *HR* Enoxaparin 40 MG/0.4 ML SYRINGE SQ SCH (07:00)
[2016-09-05] MEDS ORDERED: Cosyntropin 250 MCG/2 ML VIAL IVP ONE (08:01)
[2016-09-05] MEDS: metroNIDAZOLE 500 MG TABLET PO SCH ×2 (10:18→16:03)
[2016-09-05] MEDS: Budesonide/Formoterol 160/4.5 MDI IH SCH ×2 (10:25→22:02)
[2016-09-05] MEDS: ALPRAZolam 1 MG TABLET PO PRN (12:18)
--- NOTE | 2016-09-05 12:29 | ECHO - Doppler Report ---
Echocardiogram Name: Xenia Jimenes Date of Study: 09/05/2016 Date: 1925 Ht: 60.0 in Medical Record#: [id number] Age: 89 Wt: 105.0 lb Gender: Female BSA: 1.42 Order #: [id number] Location: [facility] Room #: [id number] Reading Physician: Pricila Mata DO [employer] Representative: Nancy Vasques RVT Ordering Physician: Paty Swain CNP Primary Physician: Karime Koch MD Indications: DYSPNEA, COPD Impressions: Rhythm demonstrates probable first degree block with possible periods of wenckebach pattern. LVEF 65%. Asymmetric LV septal hypertrophy. There is evidence of mild diastolic dysfunction of the left ventricle. Normal right ventricular size and function. Severe eccentric mitral regurgitation with thickened mitral valve leaflets and mild prolapsing of the PMVL. Mild tricuspid regurgitation which may be underestimated. No pulmonary hypertension. Recommend Cardiology consultation (Cardiology service made aware). Left Ventricular Wall Motion: Rest Echo Findings All wall segments showed normal motion. Findings: Study Quality * Technically adequate exam. ECG Findings * Normal sinus rhythm with probable first degree AVB and may be periods of wenckebach. Left Ventricle * LVEF 65%. * Asymmetric septal hypertrophy. * Mild left ventricular diastolic dysfunction. Mitral Valve * No mitral stenosis. * Mildly thickened mitral valve leaflets. * Prolapsing of the PMVL. * Severe eccentric mitral regurgitation. Aorta * Normally sized aortic root. Aortic Valve * No aortic regurgitation. * Aortic valve not well visualized. * No aortic stenosis. Tricuspid Valve * Tricuspid valve not well visualized. * Mild tricuspid regurgitation. * Estimated RA pressure is 3 mmHg. * Estimated RVSP is 33 mmHg. * No pulmonary hypertension. Pulmonic Valve * Pulmonic valve is not well visualized. * No pulmonic stenosis. * Trace pulmonic regurgitation. Pulmonary Artery * Pulmonary artery not well visualized. Right Ventricle * Normal right ventricular structure and function. Right Atrium * Normal right atrial size. Left Atrium * Moderate-severely dilated left atrium. IVC * Normal IVC dimensions and inspiratory collapse. Pericardium * There is no pericardial effusion present. History 10/2014 a Previous Echo was performed. Measurements: BP: 132/ 77 2D Normal Values IVSd: .70 cm 0.6 - 1.0 cm LVIDd: 4.60 cm 3.7 - 5.6 cm LVPWd: .80 cm 0.6 - 1.1 cm LVIDs: 3.10 cm 1.5 - 3.6 cm AO: 2.80 cm < 4.0 cm LA: 2.90 cm 2.0 - 4.0cm %FS: 32.60 cm >25 % LA volume: 79 Mitral Valve Dec Time:218.00 msec Peak E:1.26 m/sec Peak A:1.42 m/sec E/A Ratio:0.9 E/E' Lat Ratio:15.4 E/E' Med Ratio:18.5 Tricuspid Valve TV Regurg Peak Grad: 30.00mmHg TV Regurg Peak Steffen: 2.76m/sec Updated by Pricila Mata on 09/05/2016 12:14:54 PM electronically signed on 09/05/2016 12:24:46 PM with status of Final Wall Motion Sorto: 1=Normal, 2=Hypokinesis, 3=Akinesis, 4=Dyskinesis, 5=Aneurysmal, 6=Hyperkinetic, X=Not Visualized (Blank)=Missing
--- NOTE | 2016-09-05 13:08 | Cardiology Consult Note ---
Date of Encounter: 09/05/16 Time of Encounter: 13:05 Assessment and Plan (1) Severe mitral regurgitation Current Visit: Yes Status: Chronic Severe eccentric MR with thickened MV leaflets and mild prolapsing of PMVL noted on echo. Severe MR also noted on echo in 2014. EF remains preserved, 65%, mild diastolic dysfunction. Pt denies any lower extremity edema, orthopnea or PND. Admits to exertional dyspnea that she attributes to her age. Discussed options with pt regarding diagnostic LHC and potential referral to tertiary facility for Mitraclip procedure evaluation. Pt is DNR-CCA. She declines wanting any further work-up or interventions for the severe MR. Risks discussed. Euvolemic on exam. Stress test pending. Anticipate cardiology sign off with outpt follow-up once stress test results and once pt is seen by Dr. Polo. (2) Chest pain Current Visit: Yes Status: Acute Patient with mid-sternal ache for the last 2 weeks, sore when palpated. Troponins negative. Denies any chest pain currently and the pain she previously experienced was not exertional--atypical in nature. Stress test pending. Echo with preserved EF 65%, severe MR. HGB dropped from 12.0 yesterday and now decreased to 9.8. Could be dilutional. Pt denies any evidence of active bleeding. Qualifiers: Chest pain type: other chest pain Qualified Code(s): R07.89 - Other chest pain; R07.8 - Other chest pain (3) Elevated blood pressure reading Current Visit: Yes Status: Acute Most recent BP 163/80. All other readings 120s-140s/60s-70s. Pt is not on any antihypertensives. Continue to monitor and if elevated readings persist can add an antihypertensive. Discussion w patient/family: The assessment and plan as outlined above was discussed with the patient and/or family members who expressed understanding and agreement. All questions were answered. Thank you for involving us in the care of your patient. Please call with any questions. I will discuss all the above with Dr. Polo and make changes as necessary. History of Present Illness Consult date: 09/05/16 Requesting physician: Lissette Winn Consult reason: severe MR on echo Chief complaint: dyspnea, weakness History of present illness: Ms. Jimenes is a 89 year old female with COPD, arthritis, GERD who presented to the ED with complaints of weakness, poor appetite, shortness of breath on exertion and ache in her chest. She reports the chest pain was a soreness when she would rub or press on it. She denies any exertional chest pain. Troponins were negative. Stress and echo were ordered. Echo resulted--EF 65%, asymmetric LVH, mild diastolic dysfunction, severe eccentric MR with thickened MV leaflets and mild prolapsing of PMVL. Mild TR. HGB has decreased from 12.0 yesterday to 9.8 today. CXR no acute process. Upon further review--severe MR was noted on echo in 2014 and she did not show up to an outpt cardiology appointment at that time. Stress test still pending. Pt denies dizziness, lightheadedness or any current chest pain. Reports the dyspnea on exertion is mild and attributes it to her age. 24 hour tele AVG HR 83, SR with PACs. Past Med Surg Social Fam HX - Past Medical History Medical history: arthritis, COPD, valvular heart disease, other Psychiatric history: anxiety - Past Surgical History Surgical History: non-contributory, appendectomy, cholecystectomy, hysterectomy - Social History Smoking Status: Former smoker (50 Pack year history) Smokeless Tobacco Status: No Alcohol use: none Drug use: none - Family History Mother Living Status: Age at : 85 Cause of : pneumonia Father Living Status: Cause of : [place] Hx Family Cardiac Disorders: Yes Son Age: 62 Living Status: Still Living Hx Family Cardiac Disorders: Yes (HTN) Medications and Allergies Alprazolam [Xanax 1 MG Tablet] 1 mg PO TID PRN 08/01/15 [History] Ferrous Sulfate [Iron] 325 mg PO BID 08/01/15 [History] Omeprazole [PriLOSEC] 20 mg PO DAILY 08/01/15 [History] OxyCODONE/APAP 10/325 [Percocet 10/325 MG] 1 tab PO Q6HR PRN 08/01/15 [History] Atorvastatin [Lipitor] 10 mg PO HS 08/20/16 [History] Cyanocobalamin (B-12) [Vitamin B12] 1,000 mcg IM QMONTH 08/20/16 [History] Ergocalciferol (VITAMIN D2) [Vitamin D2] 50,000 unit PO MO 08/20/16 [History] Furosemide [Lasix] 20 mg PO DAILY PRN 08/20/16 [History] Linaclotide [Linzess] 290 mcg PO DAILY PRN 08/20/16 [History] Ipratropium/Albuterol Neb [Duoneb] 3 ml IH TID PRN 09/04/16 [History] Allergies No Known Drug Allergies Allergy (Verified 08/20/16 11:25) See Comments All Systems Review: A 10-system review of systems was performed and is negative for pertinent findings except as documented above in the HPI. - Constitutional Constitutional: weakness - Cardiovascular Cardiovascular: as per HPI, chest pain at rest, dyspnea on exertion - Respiratory Respiratory: dyspnea Physical Examination Vital Signs, Last 4 Hours Temp Pulse Resp BP Pulse Ox 09/05/16 12:08 97.3 F L 91 14 163/80 95 09/05/16 09:07 98.1 F 81 14 136/65 98 Vital Signs Temp Pulse Resp BP Pulse Ox 09/05/16 12:08 97.3 F L 91 14 163/80 95 09/05/16 09:07 98.1 F 81 14 136/65 98 09/05/16 04:43 98.1 F 85 16 132/77 95 09/04/16 23:20 98.5 F 94 15 126/61 97 09/04/16 22:28 16 99 09/04/16 19:36 98.6 F 90 16 137/78 99 09/04/16 17:22 97.9 F 78 15 141/67 98 09/04/16 16:42 18 149/65 09/04/16 15:06 79 18 149/65 98 09/04/16 14:06 16 97 09/04/16 14:03 89 18 146/123 97 Intake and Output 09/04/16 09/05/16 09/05/16 23:59 07:59 15:59 Intake Total 500 / 500 146 / 146 Balance 500 / 500 146 / 146 Intake: IV Fluids 500 / 500 146 / 146 0.9 % Sodium Chloride 1, 500 / 500 146 / 146 000 ML @ 60 mls/hr IVC . [id number] [facility] Rx#: [id number] Other: Meal NPO for breakfast # Bowel Movements 1 Weight 54.3 kg Patient Weight 09/05/16 23:59 Weight 54.3 kg General: Conversant, No Apparent Distress HEENT: Atraumatic, Normocephaly, Mucus Membranes Moist Neck: No JVD, Normal carotid pulses Cardiac: Reg Rate and Rhythm, Normal S1 and S2, Other (2/6 murmur noted) Lungs: Normal Breath Sounds, No Wheeze, Rales, Rhonchi Neuro: Alert and responsive, No focal deficits noted Abdomen: Soft, Non-Tender Skin: No rashes noted on visualized skin Musculoskeletal: No Chest Wall Tenderness Extremities: No Clubbing, No Cyanosis, No Edema, Normal Pulses Results 09/05/16 00:38 09/05/16 00:38 Lab Results 09/04/16 09/05/16 09/05/16 19:07 00:38 00:38 WBC 7.1 D Hgb 9.8 L D Hct 30.5 L Plt Count 260 Sodium Potassium Chloride Carbon Dioxide BUN Creatinine Glucose Calcium Troponin I 0.02 0.02 09/05/16 00:38 WBC Hgb Hct Plt Count Sodium 137 Potassium 4.7 H Chloride 109 Carbon Dioxide 19 BUN 39 H Creatinine 0.96 Glucose 188 H Calcium 8.6 Troponin I Short CBC 09/05/16 09/04/16 Range/Units 00:38 13:32 WBC 7.1 D 15.9 H (4.3-11.1) K/mcL Hgb 9.8 L D 12.0 (11.5-15.4) g/dL Hct 30.5 L 37.5 (35.3-44.9) % Plt Count 260 331 (140-400) K/mcL Neutrophils # 6.7 13.3 H (1.6-8.9) K/mcL BMP 09/05/16 09/04/16 Range/Units 00:38 13:32 Sodium 137 137 (136-145) mEq/L Potassium 4.7 H 4.4 (3.5-4.5) mEq/L Chloride 109 107 (98-109) mEq/L Carbon Dioxide 19 23 (19-29) mEq/L BUN 39 H 38 H (7-20) mg/dL Creatinine 0.96 1.07 (0.57-1.11) mg/dL Glucose 188 H 84 (70-99) mg/dL Calcium 8.6 9.4 (8.6-10.8) mg/dL Cardiac Enzymes 09/05/16 09/04/16 09/04/16 Range/Units 00:38 19:07 13:32 Troponin I 0.02 0.02 0.03 (0-0.03) ng/mL Urine 09/04/16 Range/Units 18:55 Urine Color Yellow (Yellow) Urine Clarity Clear (Clear) Urine pH 6.0 (5.0-8.0) pH Units Ur Specific Enders 1.023 (1.010-1.025) Urine Protein 30 H (Neg-Trace) mg/dL Urine Glucose (UA) Normal (Normal) mg/dL Impressions Chest X-Ray 09/04/16 13:16 IMPRESSION: No acute process. D/ / 09/04/2016 14:18:33 Jay Byrd MD / mohsen Interpreting Provider: Jay Byrd MD Active Medications Albuterol Sulfate (Proventil Neb) 2.5 mg IH Q2H PRN PRN Reason: Shortness Of Breath/Wheezing Stop: 03/06/17 17:38 Albuterol/Ipratropium (Duoneb) 3 ml IH QIDR DAVID Stop: 03/06/17 17:46 Last Admin: 09/05/16 10:25 Dose: Not Given Alprazolam (Xanax) 1 mg PO TID PRN; Protocol PRN Reason: Anxiety Stop: 03/06/17 17:38 Last Admin: 09/05/16 12:18 Dose: 1 mg Atorvastatin Calcium (Lipitor) 10 mg PO HS [facility] Stop: 03/06/17 21:01 Last Admin: 09/04/16 20:27 Dose: 10 mg Budesonide/Formoterol Fumarate (Symbicort) 2 puff IH BIDR DAVID Stop: 03/06/17 22:01 Last Admin: 09/05/16 10:25 Dose: Not Given Cosyntropin (Cosyntropin) 250 mcg IVP ONCE ONE Stop: 09/06/16 08:02 Enoxaparin Sodium (Lovenox) 30 mg SQ 0700 DAVID PRN Reason: Protocol Stop: 03/07/17 07:01 Last Admin: 09/05/16 06:17 Dose: 30 mg Ferrous Sulfate (Ferrous Sulfate) 325 mg PO BIDWM [facility] Stop: 03/06/17 21:01 Last Admin: 09/05/16 10:18 Dose: Not Given Sodium Chloride (0.9 % Sodium Chloride) 1,000 mls @ 60 mls/hr IVC .[id number] [facility] Stop: 03/06/17 18:46 Last Infusion: 09/05/16 12:22 Dose: 60 mls/hr Metronidazole (Flagyl) 500 mg PO TID DAVID PRN Reason: Protocol Stop: 03/06/17 23:01 Last Admin: 09/05/16 10:18 Dose: Not Given Naloxone HCl (Narcan) 0.4 mg IVP Q2MIN PRN PRN Reason: Opioid Reversal Stop: 03/06/17 17:36 Omeprazole (Prilosec) 20 mg PO DAILY [facility] PRN Reason: Protocol Stop: 03/07/17 09:01 Last Admin: 09/05/16 10:18 Dose: Not Given Oxycodone/Acetaminophen (Percocet 10/325) 1 each PO Q6HR PRN PRN Reason: Pain Stop: 03/06/17 17:38 Last Admin: 09/05/16 12:18 Dose: 1 each - Imaging and Cardiology Chest Xray: report reviewed Stress Test: pending Echo: report reviewed - EKG Interpretation EKG results cardiology: other (24 hour tele AVG HR 83, SR with PACs) Consult Discharge Plan - Plan Referrals: Karime Koch MD [Primary Care Provider] -
[2016-09-05] MEDS: 0.9 % Sodium Chloride 1,000 ML IVC SCH (14:46)
--- NOTE | 2016-09-05 15:00 | Nuclear Medicine Stress Report ---
Regadenoson Nuclear Stress Name: Xenia Jimenes Date of Study: 09/05/2016 Date: 1925 Ht: 60.0 in Medical Record#: [id number] Age: 89 Wt: 119.0 lb Gender: Female Order #: [id number] Location: [facility] Room: [facility] Supervising Provider: Homero Carlos CNP Reading Physician: Pricila Mata DO Ordering Physician: Lissette Winn CNP Primary Care Physician: Araceli Stress Technologist: Mark Cabrales CRT Concrete Building Assembler: Cole Beck Indications: Chest Pain Impression: Perfusion imaging was negative for ischemia or infarct. Pharmacologic ECG was negative for ischemia at the level of heart rate achieved. Gated EF = >70%. Stress Test Summary: Stress Test Type: Pharmacologic Baseline Information: Initial Heart Rate: 75 Blood Pressure: 124/82 Stress Information: Test Terminated Due to (primary): As per protocol Maximum Blood Pressure: 120/72 Maximum Heart Rate: 111 Percent Maximum Heart Rate Achieved: 85 Double Product: [id number] METS Reached: 1 Symptoms: No chest symptoms Nuclear Summary: SPECT myocardial perfusion imaging using Tc99m Sestamibi given intravenously was performed at rest and following cardiac stress testing. The resting images were obtained following initial dose of 10.5 mCi. Following stress an additional dose of 26.5 mCi was given at peak exercise or 30 seconds post regadenoson infusion. Medication Given: Time Medication Dose Units Route Findings: Stress Note * Resting ECG demonstrated normal sinus rhythm with leftward axis. * Pharmacologic stress ECG is negative for ischemia at level of heart rate achieved. * Occasional PVCs noted during recovery. Infrequent PACs during recovery. * Patient had no chest pain during stress. Hemodynamic responses * Normal hemodynamic responses to pharmacologic stress. Study Quality * Study quality is good. Gated EF > 70% * Gated EF > 70%. Left Ventricle * The left ventricle is not dilated. TID * No evidence of transient ischemic dilatation. Lung Uptake * There is no evidence of increase lung uptake. NORMALS * Normal wall motion. * Normal segmental perfusion in stress. * Normal Segmental Perfusion in rest. Updated by Pricila Mata on 09/05/2016 2:53:01 PM electronically signed on 09/05/2016 2:53:33 PM with status of Final
--- NOTE | 2016-09-05 15:13 | Internal Med Progress Note ---
Date of Encounter: 09/05/16 Time of Encounter: 13:25 - Assessment and plan (1) Severe mitral regurgitation Current Visit: Yes Status: Chronic Assessment and plan: Cardiology consultation appreciated Patient does not want any acute intervention at this time will follow up stress test Will obtain PT eval and initiate discharge planning. If remains clinically stable, likely discharge in am. (2) Chest pain Current Visit: Yes Status: Resolved Assessment and plan: REsolved at this time will follow up stress test cardiology consultation appreciated Qualifiers: Chest pain type: other chest pain Qualified Code(s): R07.89 - Other chest pain; R07.8 - Other chest pain (3) COPD (chronic obstructive pulmonary disease) Current Visit: No Status: Chronic Assessment and plan: Not in acute exacerbation bronchodilators as needed O2 supplementation as needed Qualifiers: COPD type: emphysema Emphysema type: unspecified Qualified Code(s): J43.9 - Emphysema, unspecified (4) Dehydration Current Visit: Yes Status: Acute Assessment and plan: Currently tolerating PO intake Will continue gentle IV fluids at this time. (5) Leukocytosis Current Visit: Yes Status: Resolved Assessment and plan: Resolved at this time Qualifiers: Leukocytosis type: unspecified Qualified Code(s): D72.829 - Elevated white blood cell count, unspecified (6) DVT prophylaxis Current Visit: Yes Status: Acute Assessment and plan: Lovenox SQ - Subjective Interval history: Patient seen and examined at bedside. Resting comfortably in bed and tolerating diet well. Denies any chest pain, sob, abd pain, n/v, fever, chills, diarrhea at this time. States she has not had a loose bowel movement in over two days. Reports of having formed BM this morning. Reports of having history of COPD and uses home oxygen as needed. - Constitutional Vitals: Temp Pulse Resp BP Pulse Ox 97.3 F L 91 14 163/80 95 09/05/16 12:08 09/05/16 12:08 09/05/16 12:08 09/05/16 12:08 09/05/16 12:15 General appearance: Present: A&O X 3 (frail ), pleasant, no acute distress, answers questions appropriately - Head Head exam: Present: atraumatic, normocephalic - Eye Eye exam: Present: normal appearance, PERRL, conjuntiva pink, sclera anicteric - Respiratory Respiratory exam: Present: CTAB. Absent: accessory muscle use, rales, rhonchi, wheezes - Cardiovascular Cardiovascular exam: Present: RRR, +S1, +S2. Absent: diastolic murmur, gallop, rubs, systolic murmur - GI/Abdominal GI/Abdominal exam: Present: normal bowel sounds, soft, no peritoneal signs. Absent: distended, tenderness - Extremities Exam Extremities exam: Present: warm, radial pulses palpable and symetrical. Absent : calf tenderness, cyanotic, pedal edema - Neurological Exam Neurological exam: Present: alert, oriented X3 - Psychiatric Psychiatric exam: Present: normal affect, normal mood Internal Medicine: Result - Labs CBC & Chem 7: 09/05/16 00:38 09/05/16 00:38 Labs: Short CBC 09/05/16 Range/Units 00:38 WBC 7.1 D (4.3-11.1) K/mcL Hgb 9.8 L D (11.5-15.4) g/dL Hct 30.5 L (35.3-44.9) % Plt Count 260 (140-400) K/mcL Neutrophils # 6.7 (1.6-8.9) K/mcL BMP 09/05/16 00:38 Sodium 137 Potassium 4.7 H Chloride 109 Carbon Dioxide 19 BUN 39 H Creatinine 0.96 Glucose 188 H Calcium 8.6 Cardiac Enzymes 09/04/16 09/05/16 Range/Units 19:07 00:38 Troponin I 0.02 0.02 (0-0.03) ng/mL Urine 09/04/16 Range/Units 18:55 Urine Color Yellow (Yellow) Urine Clarity Clear (Clear) Urine pH 6.0 (5.0-8.0) pH Units Ur Specific Adrian 1.023 (1.010-1.025) Urine Protein 30 H (Neg-Trace) mg/dL Urine Glucose (UA) Normal (Normal) mg/dL Consult Discharge Plan - Plan Referrals: Karime Koch MD [Primary Care Provider] -
--- NOTE | 2016-09-05 15:46 | Electrocardiograph Report ---
[place] [facility] Test Date: 2016-09-04 Pat Name: Xenia Jimenes Department: 104 Room: 3B31 Gender: F [employer] Supervisor: : 1925 Requested By: Rene Berg Order Number: [id number] Reading MD: Nathan Friend MD Measurements Intervals Bend Rate: 84 P: 56 MT: 187 QRS: -32 QRSD: 72 T: 22 QT: 313 QTc: 354 Interpretive Statements SINUS RHYTHM WITH MARKED SINUS ARRHYTHMIA MARKED LEFT AXIS DEVIATION POSSIBLE RIGHT VENTRICULAR CONDUCTION DELAY ANTEROSEPTAL MYOCARDIAL INFARCTION, OF INDETERMINATE AGE Electronically Signed On 09-05-2016 15:44:43 EDT by Nathan Friend MD
[2016-09-06 03:58] LABS: Basophils % 0.1 %; Eosinophils # 0.2 K/mcL (0.0-0.6); Eosinophils % 1.4 %; Hematocrit 29.2 % (35.3-44.9); Hemoglobin 9.3 g/dL (11.5-15.4); Immature Granulocytes % 0.8 % (0-4); Lymphocytes # 1.2 K/mcL (0.6-4.6); Lymphocytes % 11.7 %; Mean Corpuscular HGB Conc 31.8 g/dL (31.6-35.5); Mean Corpuscular Hemoglobin 27.4 pg (28.0-33.3); Mean Corpuscular Volume 85.9 fL (83.0-100.0); Mean Platelet Volume 10.5 fL (9.4-12.4); Monocytes # 0.6 K/mcL (0.0-1.3); Monocytes % 5.9 %; Neutrophils # 8.3 K/mcL (1.6-8.9); Platelet Count 216 K/mcL (140-400); Red Cell Distribution Width 17.8 % (11.5-14.5); Segmented Neutrophils % 80.1 %
[2016-09-06 04:15] LABS: BUN/Creatinine Ratio 36 (6-26); Blood Urea Nitrogen 35 mg/dL (7-20); Calcium 8.3 mg/dL (8.6-10.8); Carbon Dioxide 20 mEq/L (19-29); Chloride 113 mEq/L (98-109); Glucose 86 mg/dL (70-99); Magnesium 1.9 mg/dL (1.6-2.6); Osmolality,Calculated 297 (280-300); Phosphorous 2.6 mg/dL (2.3-4.7); Potassium 4.3 mEq/L (3.5-4.5); Sodium 140 mEq/L (136-145); eGFR For African Americans > 60 (> 60); eGFR For Non-African Americans 55 (> 60)
[2016-09-06 04:21] LABS: Hemoglobin A1C 4.9 %
[2016-09-06] MEDS: Ipratropium/Albuterol Neb 3 ML IH SCH ×2 (04:44→10:44)
[2016-09-06] MEDS: *HR* Enoxaparin 30 MG/0.3 ML SYRINGE SQ SCH (06:15)
[2016-09-06] MEDS ORDERED: Cosyntropin 250 MCG/2 ML VIAL IVP ONE (08:01)
[2016-09-06] MEDS: 0.9 % Sodium Chloride 1,000 ML IVC SCH (08:01)
[2016-09-06 10:37] VITALS: BP 121/68
[2016-09-06] MEDS: Budesonide/Formoterol 160/4.5 MDI IH SCH (10:44)
--- NOTE | 2016-09-06 13:25 | Discharge Summary ---
Date of Encounter: 09/06/16 Time of Encounter: 12:15 - Discharge Diagnosis (1) Severe mitral regurgitation Priority: Primary Status: Chronic (2) Chest pain Priority: Primary Status: Resolved Qualifiers: Chest pain type: other chest pain Qualified Code(s): R07.89 - Other chest pain; R07.8 - Other chest pain (3) COPD (chronic obstructive pulmonary disease) Priority: Secondary Status: Chronic Qualifiers: COPD type: emphysema Emphysema type: unspecified Qualified Code(s): J43.9 - Emphysema, unspecified (4) Dehydration Priority: Secondary Status: Resolved (5) Leukocytosis Priority: Secondary Status: Resolved Qualifiers: Leukocytosis type: unspecified Qualified Code(s): D72.829 - Elevated white blood cell count, unspecified (6) DVT prophylaxis Priority: Secondary Status: Acute - Discharge Medications Home Medications: Alprazolam [Xanax 1 MG Tablet] 1 mg PO TID PRN 08/01/15 [History] Ferrous Sulfate [Iron] 325 mg PO BID 08/01/15 [History] Omeprazole [PriLOSEC] 20 mg PO DAILY 08/01/15 [History] OxyCODONE/APAP 10/325 [Percocet 10/325 MG] 1 tab PO Q6HR PRN 08/01/15 [History] Atorvastatin [Lipitor] 10 mg PO HS 08/20/16 [History] Cyanocobalamin (B-12) [Vitamin B12] 1,000 mcg IM QMONTH 08/20/16 [History] Ergocalciferol (VITAMIN D2) [Vitamin D2] 50,000 unit PO MO 08/20/16 [History] Furosemide [Lasix] 20 mg PO DAILY PRN 08/20/16 [History] Linaclotide [Linzess] 290 mcg PO DAILY PRN 08/20/16 [History] Ipratropium/Albuterol Neb [Duoneb] 3 ml IH TID PRN 09/04/16 [History] Allergies/Adverse Reactions: Allergies No Known Drug Allergies Allergy (Verified 08/20/16 11:25) See Comments Procedures/tests Complete & Pending: Procedures Performed prior 72 hours Category Date Time Status NM wesley perf SPECT multi [NM] Routine Exams 09/04/16 06:14 Taken EV echocardiogram Routine Y 09/05/16 20:00 Completed SP pharm nuclear stress Routine Y 09/04/16 20:00 Completed Date of admission: 09/04/16 15:53 Primary care physician: Karime Conley Consults: 09/04/16 17:34 Consult to Data Technician [CONS] Routine Reason for SW Consult: patient currently has passport services 09/06/16 07:47 Consult to Physical Therapy [CONS] Stat Comment: Evaluate, develop and implement POC Discharging clinician: Angelita Epstein Anticipated date of discharge: 09/06/16 - Patient Status Disposition: Home Health Service Functional capacity at discharge: uses cane/walker Overall status at discharge: patient is back to baseline - Discharge Instructions Follow Up With: Karime Koch MD [Primary Care Provider] - Additional Instructions: Please follow up with your primary care physician within one week after your discharge from the hospital. Please follow up with your door puller within one to two weeks after your discharge from the hospital. Please resume all your home medications as prescribed by your primary care physician. Please seek medical help if your have chest pain or difficulty breathing. - Diet and Activity Activity: as per physical therapy, wear oxygen at all times Diet: low salt diet Hospital course: Ms. Jimenes is a 89 year old female with PMH of COPD on LTOT, arthritis, GERD, valvular heart disease who was admitted for management of chest pain and worsening shortness of breath. She was followed by cardiology and had a 2D echo done. 2D echo showed severe MR. Chest pain resolved. Patient did not want any surgical intervention and only wants medical therapy at this time. She reports of improvement in her presenting symptoms and wishes to be discharged to home. She does not want any rehab arrangement. States she has home health and would like to go back to her house. At this time she is hemodynamically stable and will be discharged to home with follow up with PCP and cardiology. Patient and family demonstrates understanding of his diagnosis and agree with the care plan. - Time Spent with Patient Total time spent providing and/or coordinating discharge services: Less than 30 minutes - Constitutional Vitals: Temp Pulse Resp BP Pulse Ox 98.1 F 87 18 121/68 94 09/06/16 10:35 09/06/16 10:35 09/06/16 10:46 09/06/16 10:35 09/06/16 10:46 General appearance: Present: A&O X 3 (frail ), pleasant, no acute distress, answers questions appropriately - Head Head exam: Present: atraumatic, normocephalic - Eye Eye exam: Present: normal appearance, conjuntiva pink, sclera anicteric - Respiratory Respiratory exam: Present: CTAB. Absent: accessory muscle use, rales, rhonchi, wheezes - Cardiovascular Cardiovascular exam: Present: RRR, +S1, +S2. Absent: diastolic murmur, gallop, rubs, systolic murmur - GI/Abdominal GI/Abdominal exam: Present: normal bowel sounds, soft, no peritoneal signs. Absent: distended, tenderness - Extremities Exam Extremities exam: Present: warm, radial pulses palpable and symetrical. Absent : calf tenderness, cyanotic, pedal edema - Neurological Exam Neurological exam: Present: alert, oriented X3 - Psychiatric Psychiatric exam: Present: normal affect, normal mood
--- NOTE | 2016-09-06 13:28 | Physician Discharge Referral ---
Home Health/Hosp Referral Info Transfer to: Home Health Provider in Charge Post Discharge: PCP - Diagnosis (1) Severe mitral regurgitation Priority: Primary Status: Chronic (2) Chest pain Priority: Secondary Status: Resolved (3) COPD (chronic obstructive pulmonary disease) Priority: Secondary Status: Chronic (4) Dehydration Priority: Secondary Status: Resolved (5) Leukocytosis Priority: Secondary Status: Resolved (6) DVT prophylaxis Priority: Secondary Status: Acute - Respiratory Orders Oxygen / L per min Smoking Cessation: Smoking cessation has been advised. For more information, call the [place] [employer] Quit Line at 3-271-HMHO-NOW. - Services Needed Following services are medically necessary services: Nursing, Home Health Aide, Physical Therapy, Occupational Therapy - Transfer Medications Home Medications: Alprazolam [Xanax 1 MG Tablet] 1 mg PO TID PRN 08/01/15 [History] Ferrous Sulfate [Iron] 325 mg PO BID 08/01/15 [History] Omeprazole [PriLOSEC] 20 mg PO DAILY 08/01/15 [History] OxyCODONE/APAP 10/325 [Percocet 10/325 MG] 1 tab PO Q6HR PRN 08/01/15 [History] Atorvastatin [Lipitor] 10 mg PO HS 08/20/16 [History] Cyanocobalamin (B-12) [Vitamin B12] 1,000 mcg IM QMONTH 08/20/16 [History] Ergocalciferol (VITAMIN D2) [Vitamin D2] 50,000 unit PO MO 08/20/16 [History] Furosemide [Lasix] 20 mg PO DAILY PRN 08/20/16 [History] Linaclotide [Linzess] 290 mcg PO DAILY PRN 08/20/16 [History] Ipratropium/Albuterol Neb [Duoneb] 3 ml IH TID PRN 09/04/16 [History] Allergies/Adverse Reactions: Allergies No Known Drug Allergies Allergy (Verified 08/20/16 11:25) See Comments Certification: Further, I certify that my clinical findings support that this patient is homebound (i.e. absences from home require considerable and taxing effort and are for medical reasons or jewish services or infrequently or short duration when for other reasons) because: Homebound Reason: Patient requires assistance of a person or device to safely leave home Attestation: My signature below is to certify that this patient is under my care and that I, or nurse practitioner, or a physician's office clerk assistant working with me, has a face-to -face encounter with this patient.
== END 2016-09-06 14:30 | disposition home health service (06) ==
LOC: 3BNU 12:57 → EMEROO 12:57 → SUATTDRO 15:53 → 3BNU 16:47
PROVIDERS: ADMIT Internal Medicine; ATTEND Internal Medicine